=== PATIENT | female | born 1955 | race Caucasian/White ===

== ENCOUNTER 2018-04-11 10:04 | Emergency (ER) | payer MEDICARE, OTHER ==
[~2018-04-11] VITALS: Ht 165.1 cm; Wt 90.7 kg
[~2018-04-11 10:04] MED LIST: ALOE25CA PO; AZIT250T PO; CALC-30 PO; DIPH25CA58 PO; HORS300C PO; HYDR-971 PO; IBUP800T19 PO; KRIL1CAP5 PO; MAGN400C PO; MILK140C PO; MULT-208 PO; NAPR-514 PO; NAPR220T70 PO; ORPH-16 PO; POTA10TA10 PO; PRED50TA PO; TURMERIC; [UNRECOGNIZED DRUG - OTHER]
--- NOTE | 2018-04-11 11:04 | ED.ADGEN ---
Past History Past Medical History: Asthma Past Surgical History: Appendectomy, Cholecystectomy, , Hysterectomy Alcohol Use: None Drug Use: None Adult General Chief Complaint Chief Complaint Cough, shortness of breath HPI HPI Patient is a 62-year-old female with history of asthma who presents with persistent productive cough with yellow-green sputum for the past 2 weeks. Patient reports difficulty sleeping at night secondary to cough. Also reports chest tightness with wheezing spite occasional home albuterol use. Patient was evaluated emergency department one week ago for the same and states she has not improved. No fever chills, nausea vomiting or sweats. No other acute symptoms or complaints. Patient is a nonsmoker.] Review of Systems Review of Systems Review symptoms as per history of present illness. [] All other systems were reviewed and found to be within normal limits, except as documented in this note. Current Medications Current Medications Current Medications Medications (Trade) Dose Ordered Sig/Francois Start Time Stop Time Status Last Admin Dose Admin Albuterol/ Ipratropium (Duoneb) 3 ml 1X ONCE 04/11/18 11:15 04/11/18 11:16 DC Allergies Allergies Allergies Coded Allergies Type Severity Reaction Last Updated Verified Penicillins Allergy Mild Rash 02/01/16 Yes Physical Exam Physical Exam Constitutional: Well developed, well nourished, no acute distress, non-toxic appearance. [] HENT: Normocephalic, atraumatic, bilateral external ears normal, oropharynx moist, no oral exudates, nose normal. [] Eyes: PERRLA, EOMI, conjunctiva normal, no discharge. [] Neck: Normal range of motion, no tenderness, supple, no stridor. [] Cardiovascular:Heart rate regular rhythm, no murmur [] Lungs & Thorax: Respirations nonlabored, coarse expiratory wheezes bilaterally. No rales rhonchi noted.[] Abdomen: Bowel sounds normal, soft, no tenderness. [] Skin: Warm, dry, no erythema, no rash. [] Back: No tenderness. [] Extremities: No tenderness. [] Neurologic: Alert and oriented X 3, normal motor function, normal sensory function, no focal deficits noted. [] Psychologic: Affect normal, judgement normal, mood normal. [] Current Patient Data Vital Signs Vital Signs Date Time Temp Pulse Resp B/P (MAP) Pulse Ox O2 Delivery O2 Flow Rate FiO2 04/11/18 10:26 97.8 84 24 97 Room Air EKG EKG [] Radiology/Procedures Radiology/Procedures [Chest x-ray: Two-view] Course & Med Decision Making Course & Med Decision Making Pertinent Labs and Imaging studies reviewed. (See chart for details) [Breathing treatment given. Chest x-ray reviewed.] Final Impression Final Impression [#1 acute bacterial bronchitis #2 mild persistent asthma exacerbation] Car Disclaimer Dragon Disclaimer This electronic medical record was generated, in whole or in part, using a voice recognition dictation system. LUISANA HARTMAN DO Apr 11, 2018 11:04
[2018-04-11] MEDS ORDERED: IPRATRPIUM/ALBUTEROL 0.5/2.5MG 3 ML NEBU. NEB ONE (11:15)
[2018-04-11] MEDS ORDERED: PRED50TA PO (11:21)
[2018-04-11] MEDS ORDERED: DOXY100T PO (11:21)
[2018-04-11] MEDS ORDERED: AZIT1PAC PO (11:21)
[2018-04-11 11:40] VITALS: BP 136/72
--- NOTE | 2018-04-11 12:00 | RAD ---
EXAM: Chest, 2 views. HISTORY: Cough. COMPARISON: None. FINDINGS: Frontal and lateral views of the chest are obtained. There is no infiltrate, pleural effusion or pneumothorax. The heart is normal in size. There are healed rib fractures. IMPRESSION: No acute pulmonary finding. Electronically signed by: Adriane John MD (04/11/2018 11:57 AM) [facility]
== END 2018-04-11 11:40 | disposition home or self-care (01) ==
LOC: ER 10:04
DX: J45.31 Mild persistent asthma with (acute) exacerbation (principal); Z88.0 Allergy status to penicillin
CPT/HCPCS: 71046; 94640; 99284; J7620

== ENCOUNTER → 2018-11-25 | Outpatient (CLI) | payer OTHER ==
[2018-06-14 11:24] VITALS: BP 119/50
[~2018-11-25] MED LIST changes: +ALBU2.5V8 INH; +AZIT1PAC PO; +DOXY100T PO; +HYDR-3165 PO; -HYDR-971 PO
--- NOTE | 2018-11-25 11:48 | RAD ---
Small bowel follow-through study 11/25/2018 CLINICAL HISTORY: Lower abdominal cramping for 3 months. TECHNIQUE: A small bowel follow-through study was performed under radiographic control. No fluoroscopy was performed. FINDINGS: An AP digital radiograph of the abdomen was obtained as a sheet manufacturing supervisor radiograph. This demonstrates a nonobstructive bowel gas pattern. A moderate amount of stool is seen throughout the colon. The lung bases are clear. No radiopaque calculus is seen. Degenerative changes are seen involving the lower thoracic and throughout the lumbar spine. The mucosal pattern of the duodenum, jejunum, ileum and terminal ileum is within normal limits. The small bowel transit time is within normal limits. The cecum is in its normal location within the right lower quadrant of the abdomen. No extrinsic mass effect upon the small intestine is seen. IMPRESSION: Negative study. Electronically signed by: Trevor Marques MD (11/25/2018 11:45 AM) [id number]
== END | disposition home or self-care (01) ==
LOC: RAD 08:26
PROVIDERS: ATTEND Internal Medicine Gastroenterology
DX: R10.33 Periumbilical pain (principal); M47.894 Other spondylosis, thoracic region; M47.896 Other spondylosis, lumbar region
CPT/HCPCS: 74250

== ENCOUNTER 2019-09-27 14:30 | Emergency (ER) | payer MEDICAID, OTHER, MEDICARE ==
[~2019-09-27] VITALS: Ht 167.6 cm; Wt 84.4 kg
[2019-09-27 14:45] VITALS: BP 114/53
--- NOTE | 2019-09-27 14:54 | PHYS DOC ---
Past History Past Medical History: Asthma, Diabetes Past Surgical History: Appendectomy, Cholecystectomy, , Hysterectomy Smoking: Non-smoker Alcohol Use: None Drug Use: None Adult General Chief Complaint Chief Complaint: BLOOD SUGAR PROBLEM HPI HPI Patient is a 64-year-old female presents wanting to have her blood sugar checked. Patient is a type II diabetic, on metformin, no recent medicine changes. Her glucose meter recently developed in here code that she is unable to determine how to fix. She does not know where the manual for the glucose meter is. She denies any fever. Denies any polyuria, polydipsia, or polyphagia. She denies any complaints. She last ate at approximately noon today.[] Review of Systems Review of Systems Constitutional: Denies fever or chills [] Eyes: Denies change in visual acuity, redness, or eye pain [] HENT: Denies nasal congestion or sore throat [] Respiratory: Denies cough or shortness of breath [] Cardiovascular: No chest pain or palpitations[] GI: Denies abdominal pain, nausea, vomiting, bloody stools or diarrhea [] : Denies dysuria or hematuria [] Musculoskeletal: Denies back pain or joint pain [] Integument: Denies rash or skin lesions [] Neurologic: Denies headache, focal weakness or sensory changes [] Endocrine: See history of present illness[] All other systems were reviewed and found to be within normal limits, except as documented in this note. Allergies Allergies Allergies Coded Allergies Type Severity Reaction Last Updated Verified Penicillins Allergy Mild Rash 02/01/16 Yes Physical Exam Physical Exam Constitutional: Well developed, well nourished, no acute distress, non-toxic appearance. [] HENT: Normocephalic, atraumatic, bilateral external ears normal, oropharynx moist, no oral exudates, nose normal. [] Eyes: PERRLA, EOMI, conjunctiva normal, no discharge. [] Neck: Normal range of motion, no tenderness, supple, no stridor. [] Cardiovascular:Heart rate regular rhythm, no murmur [] Lungs & Thorax: Bilateral breath sounds clear to auscultation [] Abdomen: Not examined. [] Skin: Warm, dry, no erythema, no rash. [] Back: No tenderness, no CVA tenderness. [] Extremities: No tenderness, no cyanosis, no clubbing, ROM intact, no edema. [] Neurologic: Alert and oriented X 3, normal motor function, normal sensory function, no focal deficits noted. [] Psychologic: Affect normal, judgement normal, mood normal. [] Current Patient Data Lab Results Laboratory Tests Test 09/27/19 14:43 Glucose (Fingerstick) 148 mg/dL (70-99) H EKG EKG [] Radiology/Procedures Radiology/Procedures [] Course & Med Decision Making Course & Med Decision Making Pertinent Labs and Imaging studies reviewed. (See chart for details) ED course: Patient arrived, was placed in bed, and tolerated exam well. Fingerstick blood sugar was obtained as noted. Findings and plan were discussed with the patient who voiced understanding. All questions were answered. She was discharged in improved condition. Medical decision making: Patient with diabetes who has a reasonable blood sugar 2 hours after eating. There is no evidence of diabetic ketoacidosis. No evidence of dehydration.[] Dragon Disclaimer Dragon Disclaimer This electronic medical record was generated, in whole or in part, using a voice recognition dictation system. Departure Departure: Impression: Primary Impression: Type 2 diabetes mellitus Disposition: HOME, SELF-CARE Condition: IMPROVED Referrals: CARON PARNELL MD (PCP) Follow-up within 2 days Patient Instructions: 1800 Calorie Diet for Diabetes Meal Planning Additional Instructions: Follow-up with your regular doctor within 2 days. Follow the ADA diet planning guide. Continue your current medications as directed. Return to the ER if you develop frequent urination, increased thirst, or any other concerns. While we are always happy to see you in the emergency department, another option for having your blood sugar checked may include the fire station. You can refused transportation to the hospital after they check your blood sugar if the level seems reasonable to you. Problem Qualifiers Primary Impression: Type 2 diabetes mellitus Diabetes mellitus usp insulin use: without usp use Diabetes mellitus complication status: without complication Qualified Codes: E11.9 - Type 2 diabetes mellitus without complications ANGELA OLSON DO Sep 27, 2019 14:54
== END 2019-09-27 14:58 | disposition home or self-care (01) ==
LOC: ER 14:30
DX: E11.9 Type 2 diabetes mellitus without complications (principal); J45.909 Unspecified asthma, uncomplicated; Z79.84 Long term (current) use of oral hypoglycemic drugs; Z88.0 Allergy status to penicillin
CPT/HCPCS: 82947; 99283

== ENCOUNTER → 2021-01-13 | Outpatient (CLI) | payer OTHER, MEDICAID ==
--- NOTE | 2021-01-13 13:03 | RAD ---
EXAM: XR FOOT_RIGHT 3 VIEWS 01/13/2021 8:28 AM CLINICAL INDICATION: Right foot pain COMPARISON: None TECHNIQUE: 3 views of the right foot with weightbearing FINDINGS: No acute fracture. Alignment is normal. There is moderate to severe joint space narrowing at the great toe MTP joint with osteophytes and subchondral cysts. The remaining joint spaces are nataliya ntained. There is a surgical clip at the medial aspect of ankle. No focal soft tissue abnormality. IMPRESSION: Moderate degenerative joint disease of the great toe MTP joint. Electronically signed by: Majo Coughlin MD (01/13/2021 1:01 PM) [id number]
== END ==
LOC: DXRAD 08:20
PROVIDERS: ATTEND Podiatrist Foot & Ankle Surgery
DX: M19.071 Primary osteoarthritis, right ankle and foot (principal); M25.774 Osteophyte, right foot; M25.871 Other specified joint disorders, right ankle and foot
CPT/HCPCS: 73630

== ENCOUNTER 2021-04-16 13:42 | Emergency (ER) | payer OTHER, MEDICAID ==
[~2021-04-16] VITALS: Ht 167.6 cm; Wt 86.0 kg
[2021-04-16] MEDS ORDERED: DEXAMETHASONE 4 MG TABLET PO ONE (14:15)
[2021-04-16] MEDS ORDERED: IPRATRPIUM/ALBUTEROL 0.5/2.5MG 3 ML NEBU. NEB ONE (14:30)
--- NOTE | 2021-04-16 14:40 | RAD ---
Exam Date: 04/16/2021 2:09 PM XR CHEST 1V Indication: Reason: soa / Spl. Instructions: / History: . Comparison: June 14, 2018 FINDINGS/ IMPRESSION: There is mild linear subsegmental atelectasis and/or scarring in the left lung base. The cardiac silhouette and pulmonary vasculature are within normal limits. There is no focal consolidation, pleural effusion or pneumothorax. Electronically signed by: Remington Lema MD (04/16/2021 2:38 PM) [facility]
[2021-04-16] MEDS ORDERED: ALBU2.5V8 IH (15:13)
[2021-04-16] MEDS ORDERED: FLUT10.6 IH (15:13)
[2021-04-16] MEDS ORDERED: METH4TAB2 PO (15:13)
--- NOTE | 2021-04-16 15:14 | PHYS DOC ---
Past History Past Medical History: Asthma, Diabetes Additional Past Medical Histor: seasonal allergies Past Surgical History: No Surgical History Smoking: Non-smoker Alcohol Use: None Drug Use: None General Adult EDM: Chief Complaint: COUGH HPI: HPI: 65-year-old female past medical history of diabetes, asthma hypertension, presents the ED with complaints of productive cough, fatigue, body aches and nasal congestion stating " I think is postnasal drip, I just wanted to get checked out." Review of Systems: Review of Systems: Constitutional: Denies fever or chills Eyes: Denies change in visual acuity HENT: Denies nasal congestion or sore throat Respiratory: Denies cough or shortness of breath Cardiovascular: Denies chest pain or edema GI: Denies abdominal pain, nausea, vomiting, bloody stools or diarrhea : Denies dysuria Musculoskeletal: Denies back pain or joint pain Integument: Denies rash Neurologic: Denies headache, focal weakness or sensory changes Endocrine: Denies polyuria or polydipsia Lymphatic: Denies swollen glands Psychiatric: Denies depression or anxiety Current Medications: Current Meds: Current Medications Medications (Trade) Dose Ordered Sig/Francois Start Time Stop Time Status Last Admin Dose Admin Albuterol/ Ipratropium (Duoneb) 9 ml 1X ONCE 04/16/21 14:30 04/16/21 14:41 DC 04/16/21 14:53 9 ML Dexamethasone (Decadron) 10 mg 1X ONCE 04/16/21 14:15 04/16/21 14:16 DC Allergies: Allergies: Allergies Coded Allergies Type Severity Reaction Last Updated Verified Penicillins Allergy Mild Rash 04/16/21 Yes Physical Exam: PE: Constitutional: Well developed, well nourished, no acute distress, non-toxic appearance. [] HENT: Normocephalic, atraumatic, bilateral external ears normal, oropharynx moist, no oral exudates, nose normal. [] Eyes: PERRLA, EOMI, conjunctiva normal, no discharge. [] Neck: Normal range of motion, no tenderness, supple, no stridor. [] Cardiovascular:Heart rate regular rhythm, no murmur [] Lungs & Thorax: Bilateral breath sounds clear to auscultation [] Abdomen: Bowel sounds normal, soft, no tenderness, no masses, no pulsatile masses. [] Skin: Warm, dry, no erythema, no rash. [] Back: No tenderness, no CVA tenderness. [] Extremities: No tenderness, no cyanosis, no clubbing, ROM intact, no edema. [] Neurologic: Alert and oriented X 3, normal motor function, normal sensory function, no focal deficits noted. [] Psychologic: Affect normal, judgement normal, mood normal. [] Current Patient Data: Labs: Laboratory Tests Test 04/16/21 14:33 Glucose (Fingerstick) 252 mg/dL (70-99) H Vital Signs: Vital Signs Date Time Temp Pulse Resp B/P (MAP) Pulse Ox O2 Delivery O2 Flow Rate FiO2 04/16/21 14:54 96 Room Air 04/16/21 13:42 98.7 101 17 128/49 EKG: EKG: [] Radiology/Procedures: Radiology/Procedures: IMAGING REPORT Signed PATIENT: WILBER BENITO LACCOUNT: [id number] : 1955 LOCATION: ER AGE: 65 SEX: F EXAM STATUS: REG ER ORD. PHYSICIAN: ALAN OLSON DO REASON: soa PROCEDURE: CHEST AP ONLY Exam Date: 04/16/2021 2:09 PM XR CHEST 1V Indication: Reason: soa / Spl. Instructions: / History: . Comparison: June 14, 2018 FINDINGS/ IMPRESSION: There is mild linear subsegmental atelectasis and/or scarring in the left lung base. The cardiac silhouette and pulmonary vasculature are within normal limits. There is no focal consolidation, pleural effusion or pneumothorax. Electronically signed by: Debra Lema MD (04/16/2021 2:38 PM) [facility] DICTATED AND SIGNED BY: DEBRA LEMA MD DATE: 04/16/21 1433 CC: CARON PARNELL MD; ALAN OLSON DO ~MTH0 0 Heart Score: C/O Chest Pain: No Risk Factors: Risk Factors: DM, Current or recent (<one month) smoker, HTN, HLP, family history of CAD, obesity. Risk Scores: Score 0 - 3: 2.5% MACE over next 6 weeks - Discharge Home Score 4 - 6: 20.3% MACE over next 6 weeks - Admit for Clinical Observation Score 7 - 10: 72.7% MACE over next 6 weeks - Early Invasive Strategies Course & Med Decision Making: Course & Med Decision Making Pertinent Labs and Imaging studies reviewed. (See chart for details) COVID-19 CRITERIA: The patient was evaluated during the global COVID-19 pandemic, and that diagnosis was suspected/considered upon their initial presentation. Their evaluation, treatment and testing [facility] for patients who present with complaints or symptoms that may be related to COVID-19. Will discharge home with strict ED return precautions were given for []. Encouraged urgent outpatient follow-up with PMD and pulmonology. Life- threatening processes were considered but are low suspicion at this time, given history, physical exam and ED workup. Pt was educated on all prescription medications and adverse effects. All patient's questions were answered and pt was stable at time of discharge. Life/limb-threatening differential includes but is not limited to, foreign body, infection/sepsis, congestive heart failure or pulmonary edema, lung cancer intrathoracic mass, bronchoconstriction, asthma/COPD/lung disease exacerbation, pneumothorax or hemothorax, pulmonary emboli, autoimmune/neurologic disease or toxidrome. I have spoken with the patient and/or caregivers. I explained the patient's condition, diagnoses and treatment plan based on the information available to me at this time. I have answered the patient and/or caregiver's questions and addressed any concerns. The patient and/or caregivers have a good understanding of patient's diagnosis, condition and treatment plan as can be expected at this point. Vital signs have been stable. Patient's condition is stable and appropriate for discharge from the emergency department. Patient will pursue further outpatient evaluation with primary care physician or other designated or consulting physician as outlined in the discharge instr uctions. The patient and/or caregivers are agreeable to this plan of care and follow-up instructions have been explained in detail. The patient and/or caregivers have received these instructions in written form and have expressed an understanding of the discharge instructions. The patient and/or caregivers are aware that any significant change of condition or worsening of symptoms should prompt immediate return to this or the closest emergency department or call to 911. Car Disclaimer: Car Disclaimer: This electronic medical record was generated, in whole or in part, using a voice recognition dictation system. Departure Departure: Impression: Primary Impression: Person under investigation for COVID-19 Additional Impressions: Cough Asthma Disposition: 01 HOME / SELF CARE / HOMELESS Condition: STABLE Referrals: CARON PARNELL MD (PCP) in 1-2 days for re-evaluation Patient Instructions: Asthma Prevention-Brief, Asthma, Adult, Cough, Adult Additional Instructions: Return to ED immediately if your oxygen level drops below 90% (purchase a pulse oximetry at a medical supply store), difficulties breathing including rapid breathing or increased work of breathing (skin sucking under ribs), chest pain or stroke-like symptoms (facial droop, speech changes, arm/leg weakness). FOLLOW UP WITH PULMONOLOGY: FOR DEFINITIVE MANAGEMENT [facility] [address] [place] [address] You have been tested for or diagnosed with COVID-19. It is an infection caused by a new type of coronavirus. COVID-19 will cause cold-like or mild flu symptoms in most. It can cause more severe symptoms like problems breathing in some. There is no treatment for COVID-19. The body will clear the infection over time. Self-care will help to ease discomfort. Steps to Take: Self-Care Rest as needed. Healthy habits may help you feel better. Steps include: Choose healthy foods including fruits and vegetables. Drink water throughout the day. Get plenty of sleep each night. If you smoke, try to quit. It may ease breathing. Avoid alcohol. Keep Others Healthy The virus can spread to others. Droplets are released every time you sneeze or cough. The droplets can get into the mouth, nose, or eyes of people near you and lead to infection. To lower the chances of spreading COVID-19 to others: Stay at home until your doctor has said it is safe to leave. If you tested positive this will mean staying isolated until both of the following are true: At least 7 days have passed since the start of illness. You are free of fever for at least 72 hours without the use of medicine. During this time: - Avoid public areas, events, or transportation. Do not return to work or school until your doctor has said it is safe to do so. - Call ahead if you need to go to a medical center. Let them know you may have COVID-19. It will help them guide you where to go. They may also ask you to wear a facemask when you come to the office. - If you call for emergency medical services, let them know you may have COVID- 19. While at home: - Try to avoid close contact with others. Stay about 6 feet away. - If possible, spend most of your time in a separate room from others. - Use a face mask if you will be in close contact with others such as sharing a room or vehicle. - Have someone wipe down common surfaces in the home. Use household staff nuclear medicine technologist every day on areas like doorknobs, counters, or sinks. - Cough or sneeze into a tissue. Throw the tissue away right after use. If a tissue is not available, cough or sneeze into your elbow. - Wash your hands often. Wash them after sneezing or coughing. Use soap and water and wash for at least 20 seconds. Alcohol based hand loom cleaner can be used if soap and water is not available. - Do not prepare food for others. Avoid sharing personal items like forks, spoons, or toothbrushes. - Avoid close contact with pets while you are sick. There is no evidence of the virus passing to pets. This is a safety step until more is known about this virus. Isolation can be frustrating. Social interaction can help. Keep in touch with friends and family through phone and tech options. You can still interact with others in your home, just keep a safe distance of about 6 feet. Follow-up: Your doctors office will check in with you to see if there are any changes in your health. You may be asked to keep track of symptoms to share with them. They will also let you know when you are clear to be in public again. Problems to Look Out For: Contact your doctor if your recovery is not going as you expect. Get emergency care if you have problems such as: - Trouble breathing - Nonstop chest pain or pressure - Changes in awareness, confusion, or problems waking - Lips or face have bluish color - Worsening of symptoms If you think you have an emergency, call for emergency medical services right away. As taken from [facility] Albuterol Sulfate (VENTOLIN HFA INHALER) 18 Gm Hfa.aer.ad 1 PUFF IH PRN Q4HRS PRN for FOR ASTHMA for 30 Days, #1 EACH 0 Refills Prov: ALAN OLSON DO 04/16/21 Fluticasone Propionate (FLOVENT 44MCG HFA) 10.6 Gm Aer.w.adap 2 PUFF IH BID for cough, #10.6 GM 2 Refills Prov: ALAN OLSON DO 04/16/21 Methylprednisolone (MEDROL) 4 Mg Tab.ds.pk 1 PKG PO UD for asthma, #1 PKG Prov: ALAN OLSON DO 04/16/21 ALAN OLSON DO Apr 16, 2021 15:14
[2021-04-16 15:37] VITALS: BP 140/65
--- NOTE | 2021-04-17 10:52 | NUR ---
Outgoing call to patient to notify her of POSITIVE COVID result and need to quarantine. Pt continued to state throughout the conversation that she does not know anyone w/COVID that she has been around, and that "no one from the Health Department called me, so I couldn't have been around anyone who had it". Reviewed instructions for quarantining, need to monitor for worsening symptoms. Pt states she has NO symptoms, aside from a cough and that her exam in the ED "did not show pneumonia". Reviewed again that her testing did show COVID, requiring quarantine for 14 days from positive test. Pt states she has an appointment to "be fitted for diabetic shoes on Saturday". Pt was advised to inform provider for that appt that she tested positive and will need to reschedule. Pt voices understanding, but does not feel she has been around anyone with COVID, so she shouldn't have COVID.
== END 2021-04-16 15:39 | disposition home or self-care (01) ==
LOC: ER 13:42
DX: U07.1 COVID-19 (principal); J45.909 Unspecified asthma, uncomplicated; E11.9 Type 2 diabetes mellitus without complications; I10 Essential (primary) hypertension; Z88.0 Allergy status to penicillin
CPT/HCPCS: 71045; 82947; 94640; 99285; C9803; U0003; J8540

== ENCOUNTER 2021-04-28 07:38 | Emergency (ER) | payer OTHER, MEDICAID ==
[~2021-04-28] VITALS: Ht 165.1 cm; Wt 83.8 kg
[~2021-04-28 07:38] MED LIST changes: +ALBU2.5V8 IH; +FLUT10.6 IH; +METH4TAB2 PO
--- NOTE | 2021-04-28 08:48 | PHYS DOC ---
Past History Past Medical History: Asthma, Diabetes Additional Past Medical Histor: seasonal allergies Past Surgical History: No Surgical History Smoking: Non-smoker Alcohol Use: None Drug Use: None General Adult EDM: Chief Complaint: COUGH HPI: HPI: Patient is a 65-year-old female coming in for cough and congestion. Was diagnosed with COVID-19 about 1.5 weeks ago. Patient states she is taking ojnn-dhc-xydgckt cough medicines but has not followed up with her primary care provider. Review of Systems: Review of Systems: All other systems within normal limits except for as noted in the HPI Allergies: Allergies: Allergies Coded Allergies Type Severity Reaction Last Updated Verified Penicillins Allergy Mild Rash 04/16/21 Yes Physical Exam: PE: Constitutional: Well developed, well nourished, no acute distress, non-toxic appearance. [] HENT: Normocephalic, atraumatic, bilateral external ears normal, nose normal. [] Eyes: PERRLA, conjunctiva normal, no discharge. [] Neck: No rigidity, supple, no stridor. [] Cardiovascular: Regular rate and rhythm, brisk cap refill [] Lungs & Thorax: Non labored symmetric respirations, no tachypnea or respiratory distress [] Abdomen: Soft, nondistended. Skin: Warm, dry, no erythema, no rash. [] Back: Unremarkable Extremities: No deformities, range of motion grossly intact, no lower extremity edema [] Neurologic: Alert and oriented X 3, no focal deficits noted. [] Psychologic: Affect normal, judgement normal, mood normal. [] Current Patient Data: Vital Signs: Vital Signs Date Time Temp Pulse Resp B/P (MAP) Pulse Ox O2 Delivery O2 Flow Rate FiO2 04/28/21 08:07 97.8 85 18 129/49 91 Room Air EKG: EKG: [] Radiology/Procedures: Radiology/Procedures: [] Heart Score: C/O Chest Pain: No Risk Factors: Risk Factors: DM, Current or recent (<one month) smoker, HTN, HLP, family history of CAD, obesity. Risk Scores: Score 0 - 3: 2.5% MACE over next 6 weeks - Discharge Home Score 4 - 6: 20.3% MACE over next 6 weeks - Admit for Clinical Observation Score 7 - 10: 72.7% MACE over next 6 weeks - Early Invasive Strategies Course & Med Decision Making: Course & Med Decision Making Pertinent Labs and Imaging studies reviewed. (See chart for details) [][place] [address] IMAGING REPORT Signed PATIENT: WILBER BENITOOUNT: [id number] : 1955 LOCATION: ER AGE: 65 SEX: F EXAM STATUS: REG ER ORD. PHYSICIAN: IVONNE PASTRANA MD REASON: COUGH FOR 2 MONTHS PROCEDURE: CHEST AP ONLY XR CHEST 1V History: Reason: COUGH FOR 2 MONTHS / Spl. Instructions: / History: Comparison: April 16, 2021 Findings: Subtle ill-defined left mid and bibasilar opacities. Small left pleural effusion. No pneumothorax. Unchanged heart size. Impression: 1. Mild ill-defined left mid and bibasilar opacities, may represent atelectasis or infiltrates including viral pneumonia. 2. Small left pleural effusion. Electronically signed by: Milton King DO (04/28/2021 8:54 AM) [id number] DICTATED AND SIGNED BY: MILTON KING DO DATE: 04/28/21 0853 CC: IVONNE PASTRANA MD; CARON PARNELL MD ~MTH0 0 Patient with normal oxygen saturations no respiratory distress. Dragon Disclaimer: DragVite Disclaimer: This electronic medical record was generated, in whole or in part, using a voice recognition dictation system. Departure Departure: Impression: Primary Impression: 2019 novel coronavirus-infected pneumonia (NCIP) Disposition: HOME / SELF CARE / HOMELESS Condition: STABLE Referrals: CARON PARNELL MD (PCP) Additional Instructions: Follow-up with your primary care provider within the next week. Scripts Guaifenesin/Dextromethorphan (Delsym Cough+Chest Cngst Dm Lq) 180 Ml Liquid 5 ML PO BID PRN for COUGH for 5 Days, #30 ML 0 Refills Prov: IVONNE PASTRANA MD 04/28/21 Doxycycline Monohydrate (Mondoxyne Nl) 100 Mg Capsule 1 CAP PO BID for antibiotic for 5 Days, #10 CAP 0 Refills Prov: IVONNE PASTRANA MD 04/28/21 IVONNE PASTRANA MD Apr 28, 2021 08:47
--- NOTE | 2021-04-28 08:56 | RAD ---
XR CHEST 1V History: Reason: COUGH FOR 2 MONTHS / Spl. Instructions: / History: Comparison: April 16, 2021 Findings: Subtle ill-defined left mid and bibasilar opacities. Small left pleural effusion. No pneumothorax. Un changed heart size. Impression: 1. Mild ill-defined left mid and bibasilar opacities, may represent atelectasis or infiltrates inclu ding viral pneumonia. 2. Small left pleural effusion. Electronically signed by: Milton King DO (04/28/2021 8:54 AM) [id number]
[2021-04-28] MEDS ORDERED: GUAI180L4 PO (09:12)
[2021-04-28] MEDS ORDERED: DOXY-167 PO (09:12)
[2021-04-28 09:14] VITALS: BP 114/64
== END 2021-04-28 09:15 | disposition home or self-care (01) ==
LOC: ER 07:38
DX: U07.1 COVID-19 (principal); J45.909 Unspecified asthma, uncomplicated; E11.9 Type 2 diabetes mellitus without complications; Z88.0 Allergy status to penicillin
CPT/HCPCS: 71045; 99283

== ENCOUNTER 2021-05-06 07:13 | Emergency (ER) | payer OTHER, MEDICAID ==
[~2021-05-06] VITALS: Ht 165.1 cm; Wt 84.4 kg
[~2021-05-06 07:13] MED LIST changes: +DOXY-167 PO; +GUAI180L4 PO
[2021-05-06 07:25] VITALS: BP 121/69
--- NOTE | 2021-05-06 07:39 | PHYS DOC ---
Past History Past Medical History: Asthma, Diabetes Additional Past Medical Histor: seasonal allergies Past Surgical History: Cholecystectomy, Hip Replacement Smoking: Non-smoker Alcohol Use: None Drug Use: None General Adult EDM: Chief Complaint: CONGESTION Problems: (1) URI (upper respiratory infection) HPI: HPI: 65-year-old female patient with a history of asthma presents the emergency d [facility] complaining of cough for the last 3 weeks. She was diagnosed with Covid on 04/16/2021, she denies that she has been vaccinated. She states that her symptoms have not resolved, complains of fatigue, intermittent chills, nausea intermittently. She denies any chest pain or fevers currently. She has a close contact family member who also has similar symptoms but has not been diagnosed as of yet. The patient admits to mild shortness of breath, denies abdominal pain, urinary symptoms, recent trauma, vomiting, diarrhea or any other complaints. Review of Systems: Review of Systems: ROS is negative except for what was mentioned in the HPI Family History: Family History: Noncontributory Allergies: Allergies: Allergies Coded Allergies Type Severity Reaction Last Updated Verified Penicillins Allergy Mild Rash 04/16/21 Yes Physical Exam: PE: All other systems reviewed as negative except for what was mentioned in the HPI. Current Patient Data: Vital Signs: Vital Signs Date Time Temp Pulse Resp B/P (MAP) Pulse Ox O2 Delivery O2 Flow Rate FiO2 05/06/21 07:25 97.6 79 18 121/69 92 Radiology/Procedures: Radiology/Procedures: EXAM: Chest, 2 views. HISTORY: Cough. COMPARISON: 04/28/2021 FINDINGS: 2 views of the chest are obtained. There is stable central predominant mild diffuse increased interstitial opacity. There is no consolidation, pleural effusion or pneumothorax. The heart is normal in size. IMPRESSION: Stable mild interstitial prominence likely due to interstitial infiltrate or chronic interstitial changes. There is no consolidated pneumonia. Electronically signed by: Adriane John MD (05/06/2021 8:04 AM) Heart Score: C/O Chest Pain: No Course & Med Decision Making: Course & Med Decision Making Chest x-ray appears stable compared to x-ray from last week. Patient is likely a long-haul for COVID-19. She is in no respiratory distress, does not require supplemental oxygen at this time and is otherwise stable and appropriate for discharge. I explained to her that antibiotics would likely not help her situation. I urged her to get vaccinated and consult with her doctor when the appropriate time would be for her to receive the vaccine for Covid Departure Departure: Impression: Primary Impression: URI (upper respiratory infection) Disposition: HOME / SELF CARE / HOMELESS Condition: STABLE Referrals: CARON PARNELL MD (PCP) Patient Instructions: Acute Bronchitis, [id number] Additional Instructions: You were seen in the emergency department for a upper respiratory tract infection. You should return to the ED if you develop worsening cough, shortness of breath, chest pain, or any other new or concerning symptoms. You can use an OTC sinus rinse to help with sinus congestion. Your cough may persist for a few weeks but your other symptoms should gradually improve. You should make sure to drink plenty of fluids at home. You likely have long-term effects from Covid. It is recommended that you consult with your doctor to get the Covid vaccine once you are able to. JOSE LENZ DO May 06, 2021 07:39
--- NOTE | 2021-05-06 08:06 | RAD ---
EXAM: Chest, 2 views. HISTORY: Cough. COMPARISON: 04/28/2021 FINDINGS: 2 views of the chest are obtained. There is stable central predominant mild diffuse increas ed interstitial opacity. There is no consolidation, pleural effusion or pneumothorax. The heart is no rmal in size. IMPRESSION: Stable mild interstitial prominence likely due to interstitial infiltrate or chronic inte rstitial changes. There is no consolidated pneumonia. Electronically signed by: Adriane John MD (05/06/2021 8:04 AM) [id number]
--- NOTE | 2021-05-08 10:31 | NUR ---
IP: Informed pt of positive covid test. Pt states she was + previously. Pt was positive on 04/16/21. This indicates not quarantine needed. Attempted to explain a positive can last for months and we do not test for cure. Pt verbalized understanding but seemed flustered with the conversation.
== END 2021-05-06 08:30 | disposition home or self-care (01) ==
LOC: ER 07:13
DX: J06.9 Acute upper respiratory infection, unspecified (principal); J45.909 Unspecified asthma, uncomplicated; E11.9 Type 2 diabetes mellitus without complications; Z90.49 Acquired absence of other specified parts of digestive tract; Z20.822 Contact with and (suspected) exposure to COVID-19; Z88.0 Allergy status to penicillin
CPT/HCPCS: 71046; 99284; C9803; U0003

== ENCOUNTER 2021-07-22 07:58 | Emergency (ER) | payer OTHER, MEDICAID ==
[~2021-07-22] VITALS: Ht 165.1 cm; Wt 84.4 kg
[2021-07-22 08:05] VITALS: BP 121/69
--- NOTE | 2021-07-22 08:10 | PHYS DOC ---
Past History Past Medical History: Asthma, Diabetes Additional Past Medical Histor: seasonal allergies Past Surgical History: Cholecystectomy, Hip Replacement Smoking: Non-smoker Alcohol Use: None Drug Use: None Adult General Chief Complaint Chief Complaint: BLOOD SUGAR PROBLEM HPI HPI Patient is a 66-year-old female presenting via POV for blood glucose problems. States she is a type 2 insulin-dependent diabetic with last A1c 7.2%. She woke up this morning and checked her fingerstick blood glucose but her glucometer was not working. She called our ER and we advised her to contact her PCP or a local pharmacy for evaluation. She subsequently came here. She states she is asymptomatic just worried about her blood sugar in fact that her glucometer is not working Review of Systems Review of Systems Fourteen body systems of review of systems have been reviewed. See HPI for pertinent positives and negative responses, other bower all other systems are negative, non-pertinent or non-contributory Allergies Allergies Allergies Coded Allergies Type Severity Reaction Last Updated Verified Penicillins Allergy Mild Rash 04/16/21 Yes Physical Exam Physical Exam Constitutional: Well developed, well nourished, no acute distress, non-toxic appearance. HENT: Normocephalic, atraumatic, bilateral external ears normal, oropharynx moist, no oral exudates, nose normal. Eyes: PERRLA, EOMI, conjunctiva normal, no discharge. Neck: Normal range of motion, no tenderness, supple, no stridor. Cardiovascular: Heart rate regular, sinus rhythm, no murmurs rubs or gallops Lungs & Thorax: Bilateral breath sounds clear to auscultation Abdomen: Bowel sounds normal, soft, no tenderness, no masses, no pulsatile masses. Nonsurgical abdomen, no peritoneal signs Skin: Warm, dry, no erythema, no rash. Back: No tenderness, no CVA tenderness. Extremities: No tenderness, no cyanosis, no clubbing, ROM intact, no edema. Neurologic: Alert and oriented X 3, grossly normal motor & sensory function, no focal deficits noted. Psychologic: Affect normal, judgement normal, mood normal. EKG EKG [] Radiology/Procedures Radiology/Procedures [] Heart Score C/O Chest Pain: No Risk Factors: Risk Factors: DM, Current or recent (<one month) smoker, HTN, HLP, family history of CAD, obesity. Risk Scores: Risk Factors: DM, Current or recent (<one month) smoker, HTN, HLP, family history of CAD, obesity. Course & Med Decision Making Course & Med Decision Making ABCs unremarkable HPI and physical exam unremarkable. Illce-rw-quak glucose 180 Patient's glucometer evaluated, it is out of batteries. Patient requesting battery change but we do not carry this. I advised her to seek care at local convenience store or pharmacy Return precautions discussed and understood by patient, all questions and co ncerns addressed prior to departure Car Disclaimer Car Disclaimer This electronic medical record was generated, in whole or in part, using a voice recognition dictation system. Departure Departure: Impression: Primary Impression: Encounter for glucometer instruction Disposition: HOME / SELF CARE / HOMELESS Condition: STABLE Referrals: CARON PARNELL MD (PCP) Additional Instructions: As discussed prior to ER departure, please defer to local pharmacy your convenience store to change battery in your glucometer. Please continue using this and your insulin at home per previously instructed by your primary care physician. Any concerning signs or symptoms present prior to outpatient follow- up do not hesitate to come back for repeat evaluation. It was a pleasure to take care of you and I wish you the best going forward ALLISON SANCHEZ DO Jul 22, 2021 08:10
== END 2021-07-22 08:50 | disposition home or self-care (01) ==
LOC: ER 07:58
DX: E11.9 Type 2 diabetes mellitus without complications (principal); J45.909 Unspecified asthma, uncomplicated; Z46.81 Encounter for fitting and adjustment of insulin pump; Z90.49 Acquired absence of other specified parts of digestive tract; Z88.0 Allergy status to penicillin
CPT/HCPCS: 82947; 99282